=== PATIENT | female | born 1990 ===

== ENCOUNTER 2017-08-05 13:06 | Emergency (ER) | payer OTHER ==
[2017-08-05 13:22] VITALS: BP 118/80; PULSE 87; RESP 20; TEMP 98.4; O2SAT 100
[2017-08-05] MEDS ORDERED: Bacitracin 500 Units/gm Oint Foilpak UD TOP ONE (14:25)
[2017-08-05] MEDS ORDERED: Tetracaine 0.5% Ophth 2 ML BOTTLE OU ONE (14:25)
[2017-08-05] MEDS ORDERED: Fluorescein 1 mg Ophthalmic Strip OU ONE (14:25)
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
[2017-08-05] MEDS ORDERED: Fluorescein 1 mg Ophthalmic Strip ONE ×2 (14:44→15:59)
[2017-08-05] MEDS ORDERED: Bacitracin 500 Units/gm Oint Foilpak UD ONE (14:44)
[2017-08-05] MEDS ORDERED: Tetracaine 0.5% Ophth (OR ONLY) ONE (14:44)
[2017-08-05] MEDS ORDERED: Tetanus/Diphtheria Toxoids 0.5 ml Syringe IM ONE (14:45)
[2017-08-05] MEDS ORDERED: Tobramycin 0.3% OPH OINT OU STA (16:05)
[2017-08-05] MEDS ORDERED: Tobramycin 0.3% OPH OINT ONE (16:13)
== END 2017-08-05 16:28 | disposition home or self-care (01) ==
LOC: C.ER 13:06
DX: T20.24XA Burn of second degree of nose (septum), initial encounter (principal); T31.0 Burns involving less than 10% of body surface; S05.01XA Injury of conjunctiva and corneal abrasion without foreign body, right eye, initial encounter; S05.02XA Injury of conjunctiva and corneal abrasion without foreign body, left eye, initial encounter; X10.0XXA Contact with hot drinks, initial encounter; Y92.89 Other specified places as the place of occurrence of the external cause; Y99.0 Civilian activity done for income or pay